=== PATIENT | male | born 1990 | race Caucasian/White ===

== ENCOUNTER 2024-07-24 15:05 | Emergency (ER) | payer MEDICAID ==
[~2024-07-24] VITALS: Ht 167.6 cm; Wt 81.8 kg
[2024-07-24 15:13] VITALS: TEMP 98.2
[2024-07-24] MEDS ORDERED: ETOMIDATE 2 MG/ML 10 ML VIAL IVP ONE (15:30)
[2024-07-24] MEDS: ONDANSETRON HCL 4 MG/2 ML VIAL IVP ONE (16:34)
[2024-07-24] MEDS: HYDROmorphone HCL 2 MG/ML SYRINGE IVP ONE (16:34)
[2024-07-24] MEDS ORDERED: IBUP-1554 PO (16:48)
[2024-07-24] MEDS ORDERED: HYDR-4062 PO (16:48)
[2024-07-24 17:35] VITALS: BP 125/85; PULSE 91; RESP 18; O2SAT 99
== END 2024-07-24 18:06 | disposition home or self-care (01) ==
LOC: EMS 15:12
DX: S82.851A Displaced trimalleolar fracture of right lower leg, initial encounter for closed fracture (principal); X50.1XXA Overexertion from prolonged static or awkward postures, initial encounter; Y93.89 Activity, other specified; Y92.89 Other specified places as the place of occurrence of the external cause; Y99.8 Other external cause status
CPT/HCPCS: 99284; 96374; 29515; 96375; 73610; 73630; J1171; J2405

== ENCOUNTER → 2024-08-30 | Emergency (ER) | payer MEDICAID ==
[~2024-08-30] VITALS: Ht 165.1 cm; Wt 78.0 kg
[~2024-08-30] MED LIST: HYDR-4062 PO; IBUP-1554 PO; TRAM50TA5 PO
[2024-08-30 17:36] VITALS: TEMP 98.9
[2024-08-30] MEDS: TraMADol HCL 50 MG TABLET PO ONE (21:12)
[2024-08-30 21:15] VITALS: BP 129/79; PULSE 88; RESP 20; O2SAT 99
== END | disposition home or self-care (01) ==
LOC: EMS 17:25
DX: S93.401A Sprain of unspecified ligament of right ankle, initial encounter (principal); W01.0XXA Fall on same level from slipping, tripping and stumbling without subsequent striking against object, initial encounter; Y93.89 Activity, other specified; Y92.89 Other specified places as the place of occurrence of the external cause; Y99.8 Other external cause status
CPT/HCPCS: 99283